=== PATIENT | female | born 1995 | race Caucasian/White ===

== ENCOUNTER 2019-05-15 11:37 | Emergency (ER) | payer MEDICAID, SELFPAY ==
[~2019-05-15] VITALS: Ht 165.1 cm; Wt 71.4 kg
--- NOTE | 2019-05-15 12:00 | NUR ---
PT GIVEN GOWN AND ASKED TO CHANGE. EDMD BEDSIDE Addendum: 05/15/19 at 1212 by [email or web address] 23 Y/O FEMALE PRESENTS TO ED WITH C/O ABD CRAMPING. PT IS 7 WEEKS . PER PT "I'VE BEEN CRAMPING THE WHOLE TIME, BUT TODAY IT GOT WORSE. I'M NOT BLEEDING."NADN. PT PLACED ON CONT PULSE OX,NIBP. NO C/O N/V/D, TRAUMA, SYNCOPE, CP, SOB.
[2019-05-15 12:26] LABS: BASOPHILS # (AUTO) 0.05 x10^3/uL (0-0.1); BASOPHILS % (AUTO) 1 % (0-1); EOSINOPHILS # (AUTO) 0.03 x10^3/uL (0-0.4); EOSINOPHILS % (AUTO) 1 % (1-7); LYMPHOCYTES # (AUTO) 1.57 x10^3/uL (1-3.4); LYMPHOCYTES % (AUTO) 27 % (22-44); MD NO; MEAN CORPUSCULAR HEMOGLOBIN 30.4 pg (27.0-34.8); MEAN CORPUSCULAR HGB CONC 34.1 g/dL (32.4-35.8); MEAN CORPUSCULAR VOLUME 89.3 fL (80-100); MEAN PLATELET VOLUME 8.8 fL (7.4-10.4); MONOCYTES # (AUTO) 0.48 x10^3/uL (0.2-0.8); MONOCYTES % (AUTO) 8 % (2-9); NEUTROPHILS % (AUTO) 63 % (42-75); PLATELET COUNT 209 x10^3/uL (130-400); RED BLOOD COUNT 4.46 x10^6/uL (3.82-5.3); RED CELL DISTRIBUTION WIDTH 13.2 % (9.6-15.2)
--- NOTE | 2019-05-15 12:26 | NUR ---
PT TO IMAGING
[2019-05-15 12:30] LABS: MICROSCOPIC NOT IND
[2019-05-15 12:34] LABS: CULTURE INDICATED? NO
[2019-05-15 12:34] LABS: ALBUMIN 4.1 g/dL (3.4-5.0); ANION GAP 7 mmol/L (5-15); CALCIUM 8.9 mg/dL (8.5-10.1); CHLORIDE 109 mmol/L (98-107); CREATININE 0.87 mg/dL (0.55-1.02)
--- NOTE | 2019-05-15 12:52 | NUR ---
PT BACK FROM IMAGING. DANETTE. PT RESTING ON [employer]. NO NEEDS REQUESTED AT THIS TIME.
[2019-05-15 13:29] VITALS: BP 95/55
--- NOTE | 2019-05-15 13:30 | NUR ---
task RN note: results and poc discussed between MD and patient. dc orders received. pt given dc instructions, pt a&o, rsps even and unlabored, gait steady to dc. nadn at dc.
== END 2019-05-15 15:05 | disposition home or self-care (01) ==
LOC: ED 13:48
DX: O20.0 Threatened abortion (principal); O99.331 Smoking (tobacco) complicating pregnancy, first trimester; F17.200 Nicotine dependence, unspecified, uncomplicated; Z3A.01 Less than 8 weeks gestation of pregnancy
CPT/HCPCS: 36415; 76801; 80048; 81003; 82040; 84702; 85025; 86901; 99284